=== PATIENT | male | born 1985 | race Caucasian/White ===

== ENCOUNTER 2018-11-20 23:06 | Emergency (ER) | payer MEDICAID ==
[~2018-11-20] VITALS: Ht 177.8 cm; Wt 86.2 kg
[~2018-11-20 23:06] MED LIST: DEXT10TA9 PO; HYDR-3714 PO; HYDR-4226 PO; HYDR1TAB PO; INDO25CA PO; INDO50CA11 PO; NAPR-243 PO; TRM50T PO
--- NOTE | 2018-11-21 00:56 | NUR ---
PT BACK TO ROOM AT THIS TIME. NO DISTRESS OR DISCOMFORT NOTED. NO DIFFICULTY WALKING OBSERVED. PT DID REPORT HIS PAIN HAS GONE FROM A "4" TO A "6" SINCE TRIAGE. PT DENIES INJURY.
[2018-11-21] MEDS ORDERED: NAPR-1071 PO (01:56)
--- NOTE | 2018-11-21 01:56 | ED Lower Extremity ---
General Chief Complaint: Lower Extremity Stated Complaint: R KNEE SWELLING Nursing Triage Note: PT AMB TO TRIAGE WITH COMPLAINT OF RIGHT KNEE SWELLING. PT STATES WHEN HE TOOK HIS PANTS OFF HE NOTICED THE HIS KNEE WAS SWOLLEN. DENIES INJURY TO KNEE. Nursing Sepsis Screen: No Definite Risk Source: patient Exam Limitations: no limitations History of Present Illness Date Seen by Provider: Nov 21, 2018 Time Seen by Provider: 01:40 Initial Comments Patient present to ER by private conveyance with chief complaint of swelling and pain in his right knee. No fevers chills or difficulty seeing, dysuria or discharge. Patient says he works at a [employer] plan and spent some time on his knees. He's been having some pain in his left knee more than right but never had any surgery or injury to his knees before. Allergies and Home Medications Allergies Coded Allergies: No Known Allergies (Unverified Allergy, Mild, 05/16/09) Home Medications Dextroamphetamine/Amphetamine 10 Mg Tablet, 10 MG PO BID, (Reported) Hydrocodone/Acetaminophen 1 Each Tablet, 1 EACH PO Q6H PRN for PAIN Prescribed by: LANDRY WERNER on 06/30/151409 Indomethacin 50 Mg Capsule, 50 MG PO TID Prescribed by: LANDRY WERNER on 06/30/15 1410 Patient Home Medication List Home Medication List Reviewed: Yes Review of Systems Constitutional: No chills, No diaphoresis EENTM: No ear discharge, No ear pain Respiratory: No cough, No phlegm Cardiovascular: No chest pain, No palpitations Gastrointestinal: No abdominal pain, No constipation, No diarrhea Past [id number]-Bazngw-Dnafqr Hx Patient Social History Alcohol Use: Denies Use Recreational Drug Use: No Smoking Status: Current Everyday Smoker Type Used: Cigarettes Recent Foreign Travel: No Contact w/Someone Who Travel: No Recent Infectious Disease Expo: No Recent Hopitalizations: No Immunizations Up To Date Tetanus Booster (TDap): Unknown PED Vaccines UTD: Yes Seasonal Allergies Seasonal Allergies: No Past Medical History Surgeries: No Respiratory: No Cardiac: No Neurological: No Reproductive Disorders: No Gastrointestinal: No Musculoskeletal: Yes Gout Endocrine: No Cancer: No Psychosocial: No Integumentary: No Blood Disorders: No Adverse Reaction/Blood Tranf: No Family Medical History No Pertinent Family Hx Physical Exam Vital Signs Vital Signs - First Documented 11/21/18 00:25 Temp 97.2 Pulse 70 Resp 20 B/P (MAP) 135/79 (97) Pulse Ox 98 O2 Delivery Room Air Capillary Refill : Less Than 3 Seconds Height, Weight, BMI Height: 5'10.00" Weight: 190lbs. oz. 86.642719wa; 27.26 BMI Method:Stated General Appearance: WD/WN, no apparent distress Neck: full range of motion, normal inspection Cardiovascular: normal peripheral pulses, regular rate, rhythm Respiratory: normal breath sounds, no respiratory distress, no accessory muscle use Knees: right knee non-tender, right knee normal inspection; bilateral knee normal range of motion; right knee no evidence of injury; left knee soft tissue tenderness, left knee swelling (prepatellar bursa swollen but not necessarily tender, erythematous or any evidence of pointing.) Progress/Results/Core Measures Results/Orders My Orders Orders - BRITT RIVERA Knee, Right, 3 Views (11/21/18 01:00) Ketorolac Injection (Toradol Injection) (11/21/18 02:00) Vital Signs/I&O 11/21/18 00:25 Temp 97.2 Pulse 70 Resp 20 B/P (MAP) 135/79 (97) Pulse Ox 98 O2 Delivery Room Air Blood Pressure Mean: 97 Progress Progress Note : Time: 01:54 Progress Note There is no joint effusion but he does have prepatellar bursitis probably from spinning time on his knees. Return a recommends kneepads. Rice therapy and follow-up in one to 2 weeks with primary care. Departure Impression Primary Impression: Prepatellar bursitis of right knee Disposition: 01 HOME, SELF-CARE Condition: Stable Departure-Patient Inst. Decision time for Depature: 01:54 Referrals: [facility] (PCP/Family) Primary Care Physician Patient Instructions: Bursitis (DC) Add. Discharge Instructions: Spend the next day close to home resting your leg. Elevate your knee above the level of your heart. Apply ice for 20 minutes every 4 hours for the first 3 days. You can use heat after that. He can also use icy hot or Biofreeze or other similar topical creams. Use Tylenol 1000 g every 8 hours as necessary for pain. Wrap the knee with an Constantino bandage not so tight has to cough circulation but to give some compression. After your knee has improved start using kneepads if you're going to spend any time on your knees. protective signal superintendent the Naprosyn and take one 500 mg tablet twice a day for 2 weeks. Follow-up with primary care in the next 2 weeks for reevaluation. If you're not feeling improvement then you can look into referral to physical therapy or orthopedic surgery for further management. All discharge instructions reviewed with patient and/or family. Voiced understanding. Scripts Naproxen (Naprosyn) 500 Mg Tablet 500 MG PO BID for 14 Days, #30 TAB 0 Refills Prov: BRITT RIVERA 11/21/18 BRITT RIVERA Nov 21, 2018 01:56
[2018-11-21] MEDS ORDERED: KETOROLAC 60 MG/2 ML VIAL IM ONE (02:00)
[2018-11-21 02:14] VITALS: BP 130/78
--- NOTE | 2018-11-21 07:09 | Diagnostic Imaging Report ---
INDICATION: Right knee pain and swelling. No known injury. TECHNIQUE: 3 views of the right knee CORRELATION STUDY: None FINDINGS: The joint spaces are maintained. The articular surfaces are smooth and preserved. There is no acute bony abnormality. Rather prominent soft tissue swelling is noted anterior to the knee. IMPRESSION: 1. Negative for acute bony abnormality of the knee. Rather pronounced anterior soft tissue swelling, nonspecific as to etiology. Dictated by: Dictated on workstation # [id number]
== END 2018-11-21 02:15 | disposition home or self-care (01) ==
LOC: EDUNIT# 23:06 → ER 23:07
DX: M70.41 Prepatellar bursitis, right knee (principal); M10.9 Gout, unspecified; F17.210 Nicotine dependence, cigarettes, uncomplicated
CPT/HCPCS: 73562

== ENCOUNTER 2020-09-16 16:05 | Emergency (ER) | payer MEDICAID ==
[~2020-09-16] VITALS: Ht 177.8 cm; Wt 72.4 kg
[~2020-09-16 16:05] MED LIST changes: -INDO50CA11 PO; +INDO50CA82 PO; +NAPR-1071 PO
--- NOTE | 2020-09-16 17:20 | NUR ---
BLOOD DRAWN BY LAB.
--- NOTE | 2020-09-16 17:26 | ED Psychosocial ---
General Chief Complaint: Detox Stated Complaint: WANTS REHAB Nursing Triage Note: AMB TO TRIAGE REPORT WANT DETOX FROM METH LAST USE WAS 1 DAY AGO. WHILE BEING TRIAGED PATIENT PHONE KEEP TEXTING ON PHONE WAS ASKED TO TURN IT OF . DENIES ANY COVID SYMPTOMS LAST TESTED [facility] SEP 05 AND IT WAS NEG. Source: patient Exam Limitations: no limitations History of Present Illness Date Seen by Provider: Sep 16, 2020 Time Seen by Provider: 17:23 Initial Comments This is a well-appearing 35-year-old male who presents to the ER with request to help him detox off of methamphetamines. . States he was recently admitted to [facility] psychiatric unit for suicidal ideation on September 04 and was disch arged on September 07. He used methamphetamines last 2 days ago, and reported suicidal ideation at that time. Today he is denying suicidal ideation and has no active plan, however, he states he thinks about suicide frequently. Has a history of anxiety and depression, but no other reported health problems. No physical complaints other than chronic right hand numbness reported. Denies fevers, chills, cough, shortness of breath, nausea, vomiting, diarrhea. States he was tested for COVID on September 05 at [facility]. Allergies and Home Medications Allergies Coded Allergies: No Known Allergies (Unverified Allergy, Mild, 05/16/09) Home Medications Dextroamphetamine/Amphetamine 10 Mg Tablet, 10 MG PO BID, (Reported) Hydrocodone/Acetaminophen 1 Each Tablet, 1 EACH PO Q6H PRN for PAIN Prescribed by: LANDRY WERNER on 06/30/15 141 Indomethacin 50 Mg Capsule, 50 MG PO TID Prescribed by: LANDRY WERNER on 06/30/15 141 Naproxen 500 Mg Tablet, 500 MG PO BID Prescribed by: BRITT RIVERA on 11/21/18 0156 Patient Home Medication List Home Medication List Reviewed: Yes Review of Systems Constitutional: no symptoms reported EENTM: no symptoms reported Respiratory: no symptoms reported Cardiovascular: no symptoms reported Gastrointestinal: no symptoms reported Genitourinary: no symptoms reported Musculoskeletal: no symptoms reported Skin: no symptoms reported Psychiatric/Neurological: Anxiety, Depressed, Emotional Problems Past Rpjcysf-Objgez-Agtnhf Hx Patient Social History Alcohol Use: Occasionally Uses Recreational Drug Use: Yes (METH) Smoking Status: Current Everyday Smoker Type Used: Cigarettes Recent Foreign Travel: No Contact w/Someone Who Travel: No Recent Infectious Disease Expo: No Recent Hopitalizations: No Immunizations Up To Date Tetanus Booster (TDap): Unknown PED Vaccines UTD: Yes Seasonal Allergies Seasonal Allergies: No Past Medical History Surgeries: No Respiratory: No Cardiac: No Neurological: No Reproductive Disorders: No Gastrointestinal: No Musculoskeletal: Yes Gout Endocrine: No Cancer: No Psychosocial: No Integumentary: No Blood Disorders: No Adverse Reaction/Blood Tranf: No Family Medical History No Pertinent Family Hx Physical Exam Vital Signs - First Documented 09/16/20 09/16/20 16:47 20:44 Temp 36.8 Pulse 88 Resp 18 B/P (MAP) 125/80 (95) Pulse Ox 98 O2 Delivery Room Air Capillary Refill : Less Than 3 Seconds Height, Weight, BMI Height: 5'10.00" Weight: 190lbs. oz. 86.142525tr; 22.00 BMI Method:Stated General Appearance: WD/WN, no apparent distress HEENT: PERRL/EOMI, pharynx normal Neck: full range of motion, normal inspection Respiratory: lungs clear, normal breath sounds Cardiovascular: regular rate, rhythm, no edema, no murmur Gastrointestinal: normal bowel sounds, non tender, soft Neurologic/Psychiatric: no motor/sensory deficits, alert, normal mood/affect, oriented x 3 Appearance/Memory: appropriate appearance, appropriate insight, neat, no memory impairment Behavior/Eye Contact: cooperative, good eye contact, normal speech Thoughts/Hallucinations: normal thought pattern, no apparent hallucination; No auditory hallucinations, No delusions, No flight of ideas Skin: normal color, warm/dry Progress/Results/Core Measures Results/Orders Lab Results Laboratory Tests Test 09/16/20 17:25 09/16/20 17:28 Range/Units White Blood Count 5.3 4.3-11.0 10^3/uL Red Blood Count 4.73 4.30-5.52 10^6/uL Hemoglobin 14.6 13.3-17.7 g/dL Hematocrit 42 40-54 % Mean Corpuscular Volume 88 80-99 fL Mean Corpuscular Hemoglobin 31 25-34 pg Mean Corpuscular Hemoglobin Concent 35 32-36 g/dL Red Cell Distribution Width 11.9 10.0-14.5 % Platelet Count 231 130-400 10^3/uL Mean Platelet Volume 8.8 L 9.0-12.2 fL Immature Granulocyte % (Auto) 0 % Neutrophils (%) (Auto) 41 L 42-75 % Lymphocytes (%) (Auto) 40 12-44 % Monocytes (%) (Auto) 14 H 0-12 % Eosinophils (%) (Auto) 4 0-10 % Basophils (%) (Auto) 1 0-10 % Neutrophils # (Auto) 2.2 1.8-7.8 10^3/uL Lymphocytes # (Auto) 2.1 1.0-4.0 10^3/uL Monocytes # (Auto) 0.7 0.0-1.0 10^3/uL Eosinophils # (Auto) 0.2 0.0-0.3 10^3/uL Basophils # (Auto) 0.0 0.0-0.1 10^3/uL Immature Granulocyte # (Auto) 0.0 0.0-0.1 10^3/uL Sodium Level 140 135-145 MMOL/L Potassium Level 3.7 3.6-5.0 MMOL/L Chloride Level 105 98-107 MMOL/L Carbon Dioxide Level 23 21-32 MMOL/L Anion Gap 12 5-14 MMOL/L Blood Urea Nitrogen 7 7-18 MG/DL Creatinine 1.02 0.60-1.30 MG/DL Estimat Glomerular Filtration Rate > 60 BUN/Creatinine Ratio 7 Glucose Level 124 H 70-105 MG/DL Calcium Level 9.6 8.5-10.1 MG/DL Corrected Calcium 9.4 8.5-10.1 MG/DL Total Bilirubin 0.5 0.1-1.0 MG/DL Aspartate Amino Transf (AST/SGOT) 18 5-34 U/L Alanine Aminotransferase (ALT/SGPT) 17 0-55 U/L Alkaline Phosphatase 64 40-136 U/L Total Protein 6.5 6.4-8.2 GM/DL Albumin 4.2 3.2-4.5 GM/DL Salicylates Level < 5.0 L 5.0-20.0 MG/DL Acetaminophen Level < 10 L 10-30 UG/ML Serum Alcohol < 10 <10 MG/DL Urine Color YELLOW Urine Clarity CLEAR Urine pH 6.0 5-9 Urine Specific [place] 1.025 H 1.016-1.022 Urine Protein NEGATIVE NEGATIVE Urine Glucose (UA) NEGATIVE NEGATIVE Urine Ketones NEGATIVE NEGATIVE Urine Nitrite NEGATIVE NEGATIVE Urine Bilirubin NEGATIVE NEGATIVE Urine Urobilinogen 1.0 < = 1.0 MG/DL Urine Leukocyte Esterase NEGATIVE NEGATIVE Urine RBC (Auto) NEGATIVE NEGATIVE Urine RBC NONE /HPF Urine WBC 5-10 H /HPF Urine Squamous Epithelial Cells NONE /HPF Urine Crystals NONE /LPF Urine Bacteria MODERATE H /HPF Urine Casts NONE /LPF Urine Mucus LARGE H /LPF Urine Culture Indicated YES Urine Opiates Screen NEGATIVE NEGATIVE Urine Oxycodone Screen NEGATIVE NEGATIVE Urine Methadone Screen NEGATIVE NEGATIVE Urine Propoxyphene Screen NEGATIVE NEGATIVE Urine Barbiturates Screen NEGATIVE NEGATIVE Ur Tricyclic Antidepressants Screen NEGATIVE NEGATIVE Urine Phencyclidine Screen NEGATIVE NEGATIVE Urine Amphetamines Screen NEGATIVE NEGATIVE Urine Methamphetamines Screen POSITIVE H NEGATIVE Urine Benzodiazepines Screen NEGATIVE NEGATIVE Urine Cocaine Screen NEGATIVE NEGATIVE Urine Cannabinoids Screen POSITIVE H NEGATIVE My Orders Orders - NORAH BUTCHER ELEMENTARY ASSISTANT TEACHER Ua Culture If Indicated (09/16/20 17:13) Cbc With Automated Diff (09/16/20 17:13) Comprehensive Metabolic Panel (09/16/20 17:13) Alcohol (09/16/20 17:13) Drug Screen Stat (Urine) (09/16/20 17:13) Acetaminophen (09/16/20 17:13) Salicylate (09/16/20 17:13) Ekg Tracing (09/16/20 17:13) Urine Culture (09/16/20 17:28) Ceftriaxone For Im Use (Rocephin For Im (09/16/20 18:15) Lidocaine 1% Inj 20 Ml (Xylocaine 1% Inj (09/16/20 18:15) Medications Given in ED Current Medications Medications Dose Ordered Sig/Natividad Route Start Time Stop Time Status Last Admin Dose Admin Ceftriaxone Sodium 1,000 mg ONCE ONCE IM 09/16/20 18:15 09/16/20 18:16 DC 09/16/20 18:52 1,000 MG Lidocaine HCl 2.1 ml ONCE ONCE INJ 09/16/20 18:15 09/16/20 18:16 DC 09/16/20 18:52 2.1 ML Vital Signs/I&O 09/16/20 09/16/20 16:47 20:44 Temp 36.8 36.8 Pulse 88 88 Resp 18 18 B/P (MAP) 125/80 (95) 125/80 Pulse Ox 98 98 O2 Delivery Room Air Blood Pressure Mean: 95 Progress Progress Note : Progress Note His brother brought him into the ER to get help, stating patient showed up at his house 2 days ago and was verbalizing suicidal thoughts, stating patient was saying he was going at an insurance plan and he could just and his family would be taken care of without him. He is currently denying suicidal ideation at this time, but does state he thinks about it quite frequently. Medical screening initiated upon arrival. Discussed plan to contact [facility] due to frequency of suicidal ideation, he is agreeable with this. States he would just like to get help. Labs reviewed and are unremarkable, does have UTI. Will treat with Rocephin. Called [facility] at [phone] for mental health screen. Tracking number [id number]. Reviewed safety plan with him and discharge plan. He is agreeable with POC. Departure Impression Primary Impression: Drug abuse Disposition: HOME, SELF-CARE Condition: Stable Departure-Patient Inst. Decision time for Depature: 20:13 Referrals: [facility] (PCP/Family) Primary Care Physician Add. Discharge Instructions: 1. Follow safety plan as outlined with [facility]. 2. Follow up with [facility]. 3. Do not use Methamphetamines. 4. Return for any new, concerning, or worsening symptoms. All discharge instructions reviewed with patient and/or family. Voiced understanding. Copy Copies To 1: [facility]NORAH STAUFFER ELEMENTARY ASSISTANT TEACHER Sep 16, 2020 17:26
[2020-09-16 17:30] LABS: BASOPHILS % (AUTO) 1 % (0-10); EOSINOPHILS # (AUTO) 0.2 10^3/uL (0.0-0.3); EOSINOPHILS % (AUTO) 4 % (0-10); HEMATOCRIT 42 % (40-54); HEMOGLOBIN 14.6 g/dL (13.3-17.7); LYMPHOCYTES # (AUTO) 2.1 10^3/uL (1.0-4.0); LYMPHOCYTES % (AUTO) 40 % (12-44); MEAN CORPUSCULAR HEMOGLOBIN 31 pg (25-34); MEAN CORPUSCULAR HGB CONC 35 g/dL (32-36); MEAN CORPUSCULAR VOLUME 88 fL (80-99); MEAN PLATELET VOLUME 8.8 fL (9.0-12.2); MONOCYTES # (AUTO) 0.7 10^3/uL (0.0-1.0); MONOCYTES % (AUTO) 14 % (0-12); NEUTROPHILS # (AUTO) 2.2 10^3/uL (1.8-7.8); NEUTROPHILS % (AUTO) 41 % (42-75); PLATELET COUNT 231 10^3/uL (130-400); WHITE BLOOD COUNT 5.3 10^3/uL (4.3-11.0)
[2020-09-16 17:36] LABS: BILIRUBIN,URINE NEGATIVE (NEGATIVE); CLARITY,URINE CLEAR; COLOR,URINE YELLOW; GLUCOSE, URINE (UA) NEGATIVE (NEGATIVE); KETONES,URINE NEGATIVE (NEGATIVE); LEUKOCYTE ESTERASE ,URINE NEGATIVE (NEGATIVE); NITRITE,URINE NEGATIVE (NEGATIVE); PROTEIN,URINE NEGATIVE (NEGATIVE)
[2020-09-16 17:40] LABS: ALBUMIN 4.2 GM/DL (3.2-4.5); CHLORIDE 105 MMOL/L (98-107); POTASSIUM 3.7 MMOL/L (3.6-5.0); SODIUM 140 MMOL/L (135-145)
[2020-09-16 17:41] LABS: CALCIUM 9.6 MG/DL (8.5-10.1)
[2020-09-16 17:42] LABS: GLUCOSE 124 MG/DL (70-105)
[2020-09-16 17:43] LABS: CARBON DIOXIDE 23 MMOL/L (21-32); TOTAL PROTEIN 6.5 GM/DL (6.4-8.2)
[2020-09-16 17:44] LABS: BILIRUBIN,TOTAL 0.5 MG/DL (0.1-1.0)
[2020-09-16 17:46] LABS: BACTERIA,URINE MODERATE /HPF
[2020-09-16 17:46] LABS: ALKALINE PHOSPHATASE 64 U/L (40-136); CREATININE SERUM 1.02 MG/DL (0.60-1.30); GFR ESTIMATED > 60
[2020-09-16 17:48] LABS: BUN/CREATININE RATIO 7
[2020-09-16 17:49] LABS: ACETAMINOPHEN < 10 UG/ML (10-30); ALANINE AMINOTRANSFERASE 17 U/L (0-55); SALICYLATE < 5.0 MG/DL (5.0-20.0)
[2020-09-16 18:08] LABS: AMPHETAMINE SCREEN, URINE NEGATIVE (NEGATIVE); BARBITURATE SCREEN URINE NEGATIVE (NEGATIVE); BENZODIAZEPINES SCREEN URINE NEGATIVE (NEGATIVE); CANNABINOID SCREEN, URINE POSITIVE (NEGATIVE); COCAINE SCREEN URINE NEGATIVE (NEGATIVE); METHADONE STAT NEGATIVE (NEGATIVE); METHAMPHETAMINE SCREEN URINE S POSITIVE (NEGATIVE); OPIATE SCREEN URINE NEGATIVE (NEGATIVE); OXYCODONE STAT NEGATIVE (NEGATIVE); PROPOXYPHENE STAT NEGATIVE (NEGATIVE); TRICYCLIC ANTIDEPRESSANTS SCRE NEGATIVE (NEGATIVE)
[2020-09-16] MEDS ORDERED: cefTRIAXone 1,000 MG/2.86 ml vial (IM ONLY) IM ONE (18:15)
[2020-09-16] MEDS ORDERED: LIDOCAINE 1% INJ 20 ML 20 ML VIAL INJ ONE (18:15)
--- NOTE | 2020-09-16 19:00 | NUR ---
ZOOM MEETING SET OF WITH MENTAL HEALTH
[2020-09-16 20:44] VITALS: BP 125/80
== END 2020-09-16 20:40 | disposition home or self-care (01) ==
LOC: EDUNIT# 16:05 → ER 16:07
DX: F15.10 Other stimulant abuse, uncomplicated (principal); F17.210 Nicotine dependence, cigarettes, uncomplicated; F41.9 Anxiety disorder, unspecified; F32.9 Major depressive disorder, single episode, unspecified
CPT/HCPCS: 80053; 80306; 81000; 85025; 87088; 93005; 99283; G0480 ×3; 36415; 80320; 80329

== ENCOUNTER 2021-05-28 22:34 | Emergency (ER) | payer SELFPAY ==
[~2021-05-28] VITALS: Ht 177.8 cm; Wt 65.0 kg
[2021-05-28 22:40] VITALS: BP 133/89
[2021-05-28 23:13] LABS: BASOPHILS # (AUTO) 0.1 10^3/uL (0.0-0.1); BASOPHILS % (AUTO) 1 % (0-10); EOSINOPHILS # (AUTO) 0.3 10^3/uL (0.0-0.3); EOSINOPHILS % (AUTO) 4 % (0-10); HEMATOCRIT 42 % (40-54); HEMOGLOBIN 14.9 g/dL (13.3-17.7); LYMPHOCYTES # (AUTO) 2.2 10^3/uL (1.0-4.0); LYMPHOCYTES % (AUTO) 29 % (12-44); MEAN CORPUSCULAR HEMOGLOBIN 32 pg (25-34); MEAN CORPUSCULAR HGB CONC 35 g/dL (32-36); MEAN CORPUSCULAR VOLUME 90 fL (80-99); MEAN PLATELET VOLUME 8.8 fL (9.0-12.2); MONOCYTES % (AUTO) 13 % (0-12); NEUTROPHILS # (AUTO) 4.2 10^3/uL (1.8-7.8); NEUTROPHILS % (AUTO) 53 % (42-75); PLATELET COUNT 242 10^3/uL (130-400); WHITE BLOOD COUNT 7.8 10^3/uL (4.3-11.0)
[2021-05-28] MEDS ORDERED: FAMOTIDINE 20MG/2ML IV (PEPCID) IVP ONE (23:15)
[2021-05-28] MEDS ORDERED: ONDANSETRON 4 MG/2 ML (SDV) Z0FRAN IVP ONE (23:15)
[2021-05-28 23:27] LABS: ALBUMIN 4.3 GM/DL (3.2-4.5); POTASSIUM 3.8 MMOL/L (3.6-5.0)
[2021-05-28 23:28] LABS: INR 1.1 (0.8-1.4); PROTHROMBIN TIME PATIENT 14.4 SEC (12.2-14.7)
[2021-05-28 23:30] LABS: TOTAL PROTEIN 6.9 GM/DL (6.4-8.2)
[2021-05-28 23:32] LABS: BILIRUBIN,TOTAL 0.5 MG/DL (0.1-1.0)
[2021-05-28 23:33] LABS: CREATININE SERUM 1.04 MG/DL (0.60-1.30)
[2021-05-28 23:36] LABS: MAGNESIUM 2.4 MG/DL (1.6-2.4)
[2021-05-28 23:37] LABS: LIPASE 25 U/L (8-78)
--- NOTE | 2021-05-29 01:15 | ED Chest Pain ---
General Chief Complaint: Chest Pain Stated Complaint: L SIDE CHEST PAIN/TINGLING ON FACE/CONGESTION Nursing Triage Note: Pt arrival to ER with disheviled look. Pt has no shoes on and is dressed as if its winter time. Pt complains of chest pain x3 days. pt states that its worsened. Pt is rude when answering questions and is a poor historian. When asking about Smoking, Drug, or Alcohol use patient states that its hard to tell these days. Pt has what appears to be liquor bottle on him, staff takes it and sets it aside. Pt demands blanket and is mad when we ask to do EKG. Pt asks for nurse to leave room and wants someone else to take care of him. Pain at a 06/16. Source: patient, old records Exam Limitations: no limitations History of Present Illness Date Seen by Provider: May 28, 2021 Time Seen by Provider: 22:48 Initial Comments This 36-year-old gentleman presents to the emergency room with complaints of left-sided chest, sore throat and upper abdominal pain present for 3 days and worsening. He has associated nausea without vomiting and shortness of breath. He denies diarrhea call the change in taste or smell, or cough. He denies any prior episodes. Patient seems rather resistant to care despite of starting his desire to be evaluated for cardiopulmonary problems. He requested his IV be removed. It took some coaxing for him to proceed with the remainder of the work-up. He eventually did consent to chest x-ray and nasal swabs. He did not provide a urine specimen. Positive urine drug screen on his prior ER visit. He denies drug or alcohol use during this visit. Patient was noted to have a small sheathed hatchet-like weapon tucked under his belt. We requested this be removed and placed in the supervision of the distribution warehouse manager. Patient did comply with this request. Allergies and Home Medications Allergies Coded Allergies: No Known Allergies (Unverified Allergy, Mild, 05/16/09) Patient Home Medication List Home Medication List Reviewed: Yes Dextroamphetamine/Amphetamine (Adderall 10 mg Tablet) 10 Mg Tablet, 10 MG PO BID, (Reported) Entered as Reported by: NANCY BUSTOS on 06/30/15 2877 Hydrocodone/Acetaminophen (Hydrocodone/Acetaminophen 5 MG/325 MG TAB) 1 Each Tablet, 1 EACH PO Q6H PRN for PAIN Prescribed by: LANDRY WERNER on 06/30/15 1410 Indomethacin (Indomethacin) 50 Mg Capsule, 50 MG PO TID Prescribed by: LANDRY WERNER on 06/30/15 1410 Naproxen (Naprosyn) 500 Mg Tablet, 500 MG PO BID Prescribed by: BRITT RIVERA on 11/21/18 0156 Review of Systems Review of Systems Constitutional: no symptoms reported EENTM: No Symptoms Reported Respiratory: See HPI Cardiovascular: See HPI Gastrointestinal: See HPI Genitourinary: No Symptoms Reported Musculoskeletal: see HPI Skin: no symptoms reported Psychiatric/Neurological: See HPI Endocrine: No Symptoms Reported Past Kvxakml-Owkcry-Hakbfc Hx Patient Social History Tobacco Use?: Yes Tobacco type used: Cigarettes Smoking Status: Current Everyday Smoker Use of E-Cig and/or Vaping dev: No Substance use?: Yes Substance type: Methamphetamine, Marijuana Alcohol Use?: Yes Alcohol type: Other Alcohol Frequency: Rarely Pt feels they are or have been: No Immunizations Up To Date Tetanus Booster (TDap): Unknown PED Vaccines UTD: Yes Influenza Vaccine Up-to-Date: No; Not Current Seasonal Allergies Seasonal Allergies: No Past Medical History Surgeries: No Respiratory: No Cardiac: No Neurological: No Reproductive Disorders: No Gastrointestinal: No Musculoskeletal: Yes Gout Endocrine: No Cancer: No Psychosocial: No Integumentary: No Blood Disorders: No Adverse Reaction/Blood Tranf: No Family Medical History No Pertinent Family Hx Physical Exam Vital Signs Vital Signs - First Documented 05/28/21 22:40 Temp 36.3 Pulse 84 Resp 20 B/P (MAP) 133/89 (104) Pulse Ox 97 O2 Delivery Room Air Capillary Refill : Less Than 3 Seconds Height, Weight, BMI Height: 5'10.00" Weight: 190lbs. oz. 86.017752jr; 20.00 BMI Method:Stated General Appearance: No Apparent Distress, WD/WN HEENT: PERRL/EOMI, Normal ENT Inspection, Other (Oropharynx somewhat dry) Neck: Normal Inspection Respiratory: Lungs Clear, Normal Breath Sounds, No Accessory Muscle Use, Other (Left anterior chest tender to palpation) Cardiovascular: Regular Rate, Rhythm, No Edema, No Murmur Gastrointestinal: Normal Bowel Sounds, Soft, Tenderness (Left upper quadrant) Extremity: Normal Inspection, Non Tender, No Calf Tenderness, No Pedal Edema Neurologic/Psychiatric: Alert, Oriented x3, No Motor/Sensory Deficits, public relations assistant II- XII Norm as Tested, Other (Disagreeable and suspicious during exam and work-up) Skin: Normal Color, Warm/Dry Progress/Results/Core Measures Results/Orders Lab Results Laboratory Tests Test 05/28/21 23:04 05/29/21 00:10 Range/Units White Blood Count 7.8 4.3-11.0 10^3/uL Red Blood Count 4.69 4.30-5.52 10^6/uL Hemoglobin 14.9 13.3-17.7 g/dL Hematocrit 42 40-54 % Mean Corpuscular Volume 90 80-99 fL Mean Corpuscular Hemoglobin 32 25-34 pg Mean Corpuscular Hemoglobin Concent 35 32-36 g/dL Red Cell Distribution Width 11.6 10.0-14.5 % Platelet Count 242 130-400 10^3/uL Mean Platelet Volume 8.8 L 9.0-12.2 fL Immature Granulocyte % (Auto) 0 % Neutrophils (%) (Auto) 53 42-75 % Lymphocytes (%) (Auto) 29 12-44 % Monocytes (%) (Auto) 13 H 0-12 % Eosinophils (%) (Auto) 4 0-10 % Basophils (%) (Auto) 1 0-10 % Neutrophils # (Auto) 4.2 1.8-7.8 10^3/uL Lymphocytes # (Auto) 2.2 1.0-4.0 10^3/uL Monocytes # (Auto) 1.0 0.0-1.0 10^3/uL Eosinophils # (Auto) 0.3 0.0-0.3 10^3/uL Basophils # (Auto) 0.1 0.0-0.1 10^3/uL Immature Granulocyte # (Auto) 0.0 0.0-0.1 10^3/uL Erythrocyte Sedimentation Rate 6 0-15 MM/HR Prothrombin Time 14.4 12.2-14.7 SEC INR Comment 1.1 0.8-1.4 Activated Partial Thromboplast Time 30 24-35 SEC Sodium Level 139 135-145 MMOL/L Potassium Level 3.8 3.6-5.0 MMOL/L Chloride Level 105 98-107 MMOL/L Carbon Dioxide Level 23 21-32 MMOL/L Anion Gap 11 5-14 MMOL/L Blood Urea Nitrogen 15 7-18 MG/DL Creatinine 1.04 0.60-1.30 MG/DL Estimat Glomerular Filtration Rate 81 BUN/Creatinine Ratio 14 Glucose Level 88 70-105 MG/DL Calcium Level 10.0 8.5-10.1 MG/DL Corrected Calcium 9.8 8.5-10.1 MG/DL Magnesium Level 2.4 1.6-2.4 MG/DL Total Bilirubin 0.5 0.1-1.0 MG/DL Aspartate Amino Transf (AST/SGOT) 15 5-34 U/L Alanine Aminotransferase (ALT/SGPT) 14 0-55 U/L Alkaline Phosphatase 75 40-136 U/L Myoglobin 31.5 10.0-92.0 NG/ML Troponin I < 0.028 <0.028 NG/ML C-Reactive Protein High Sensitivity 0.20 0.00-0.50 MG/DL Total Protein 6.9 6.4-8.2 GM/DL Albumin 4.3 3.2-4.5 GM/DL Lipase 25 8-78 U/L Serum Alcohol < 10 <10 MG/DL Influenza Type A Antigen NEGATIVE NEGATIVE Influenza Type B Antigen NEGATIVE NEGATIVE Group A Streptococcus Screen NEGATIVE NEGATIVE My Orders Orders - TIMUR GERONIMO MD Cbc With Automated Diff (05/28/21:00) Magnesium (05/28/21 23:00) Ekg Tracing (05/28/21 23:00) Comprehensive Metabolic Panel (05/28/21 23:00) Myoglobin Serum (05/28/21 23:00) Protime With Inr (05/28/21:00) Partial Thromboplastin Time (05/28/21:00) O2 (05/28/21 23:00) Monitor-Rhythm Ecg Trace Only (05/28/21 23:00) Ed Iv/Invasive Line Start (05/28/21 23:00) Troponin I (05/28/21 23:00) Alcohol (05/28/21 23:00) Hs C Reactive Protein (05/28/21 23:00) Lipase (05/28/21 23:00) Erythrocyte Sedimentation Rate (05/28/21 23:00) Ondansetron Injection (Zofran Injectio (05/28/21 23:15) Famotidine Injection (Pepcid Injection) (05/28/21 23:15) Rapid Strep A Screen (05/28/21 23:01) Coronavirus Sars-Cov-2 So 2019 (05/28/21 23:01) Influenza A & B Antigens (05/28/21 23:07) Chest 1 View, Ap/Pa Only (05/29/21 00:00) Vital Signs/I&O 05/28/21 22:40 Temp 36.3 Pulse 84 Resp 20 B/P (MAP) 133/89 (104) Pulse Ox 97 O2 Delivery Room Air Blood Pressure Mean: 104 Progress Progress Note : Progress Note Work-up was unremarkable. Patient declined Toradol for his pain. He became increasingly somnolent throughout his ER visit but was easily arousable and was ambulatory on discharge. Covid screen was pending at the time of discharge. Initial ECG Impression Date: May 28, 2021 Initial ECG Impression Time: 22:45 Initial ECG Rate: 74 Initial ECG Rhythm: Normal Sinus Initial ECG Intervals: Normal Initial ECG Impression: Normal Comment Normal sinus rhythm with no diagnostic ST elevation or depression. No abnormal intervals or axis deviation. Diagnostic Imaging Diagonstic Imaging: Xray Plain Films/CT/US/NM/MRI: chest Comments Chest x-ray viewed by me. Report not available. No acute abnormalities appr eciated. Departure Impression Primary Impression: Chest wall pain Additional Impressions: Pharyngitis Qualified Codes: J02.9 - Acute pharyngitis, unspecified Left sided abdominal pain of unknown cause Person under investigation for COVID-19 Disposition: 01 HOME, SELF-CARE Condition: Stable Departure-Patient Inst. Decision time for Depature: 01:14 Referrals: [facility] [place] Primary Care Physician Patient Instructions: Chest Pain That Is Not Caused by the Heart (DC) Add. Discharge Instructions: Your heart and lung evaluation in the emergency department was unremarkable. However, you should follow-up with your primary care provider for further evaluation. Your COVID-19 test is still pending. Please remain in isolation and quarantined away from others until the results of your test is known. This should be available in 24 to 48 hours. You may take Tylenol (acetaminophen) and/or ibuprofen for your pain. Call with questions or concerns. Return to the ER if you have worsening symptoms. All discharge instructions reviewed with patient and/or family. Voiced understanding. Copy Copies To 1: STEFAN MACK JOSHUA T MD May 29, 2021 01:15
--- NOTE | 2021-05-29 07:09 | Diagnostic Imaging Report ---
Portable erect AP chest at 1209h. INDICATION: Chest pain COMPARISON: None. FINDINGS: The heart size is within normal limits. The lungs are clear. There is no evidence for failure, pneumonia or for a pleural effusion. The mediastinum is not widened. The osseous structures are intact. IMPRESSION: There is no evidence for active disease. Dictated by: Dictated on workstation # [id number]
== END 2021-05-29 01:23 | disposition home or self-care (01) ==
LOC: EDUNIT# 22:34 → ER 22:37
DX: R07.89 Other chest pain (principal); J02.9 Acute pharyngitis, unspecified; R10.12 Left upper quadrant pain; F17.210 Nicotine dependence, cigarettes, uncomplicated; Z20.822 Contact with and (suspected) exposure to COVID-19
CPT/HCPCS: 71045; 80053; 83690; 83735; 83874; 84484; 85025; 85610; 85652; 85730; 86141; 87430; 87635; 87804; 93005; 93041; 99284; G0480; 36415; 80320

== ENCOUNTER 2022-12-16 07:01 | Emergency (ER) | payer SELFPAY ==
[~2022-12-16] VITALS: Ht 177 cm; Wt 72.0 kg
[2022-12-16] MEDS ORDERED: HYDROcodone/APAP 5 MG/325 MG (LORTAB) TAB PO ONE (07:15)
[2022-12-16] MEDS ORDERED: KETOROLAC 30 MG/ML VIAL IM ONE (07:15)
--- NOTE | 2022-12-16 07:22 | ED GU-Male ---
General Chief Complaint: - Reproductive Stated Complaint: SWOLLEN LEFT TESTICLE Nursing Triage Note: ARRIVED VIA EMS WITH A SWOLLEN LEFT TESTICLE STARTING LEFT TESTICLE FOR SEVERAL DAYS THAT HAS BEEN GETTING WORSE. Source: patient, EMS Exam Limitations: no limitations History of Present Illness Date Seen by Provider: Dec 16, 2022 Time Seen by Provider: 07:03 Initial Comments 37-year-old male with no pertinent past medical history coming in due to left testicle swelling and pain. Been going on for several days, getting worse. He has not seen anyone for it as of yet. Last took some ibuprofen yesterday which helped somewhat. He noted that there were some "floating things" in his urine, but denies any discharge from his penis. Denies any trauma to the area, fever, nausea, vomiting, abdominal pain, rash, or any other concerns. Allergies and Home Medications Allergies Coded Allergies: No Known Allergies (Unverified Allergy, Mild, 05/16/09) Patient Home Medication List Home Medication List Reviewed: Yes Discontinued Medications Dextroamphetamine/Amphetamine (Adderall 10 mg Tablet) 10 Mg Tablet, 10 MG PO BID, (Reported) Discontinued Reason: No Longer Taking Entered as Reported by: NANCY BUSTOS on 06/30/15 1317 Last Action: Discontinued Hydrocodone/Acetaminophen (Hydrocodone/Acetaminophen 5 MG/325 MG TAB) 1 Each Tablet, 1 EACH PO Q6H PRN for PAIN Discontinued Reason: No Longer Taking Prescribed by: LANDRY WERNER on 06/30/15 141 Last Action: Discontinued Indomethacin (Indomethacin) 50 Mg Capsule, 50 MG PO TID Discontinued Reason: No Longer Taking Prescribed by: LANDRY WERNER on 06/30/15 1410 Last Action: Discontinued Naproxen (Naprosyn) 500 Mg Tablet, 500 MG PO BID Discontinued Reason: No Longer Taking Prescribed by: BRITT RIVERA on 11/21/18 0156 Last Action: Discontinued Review of Systems Review of Systems Constitutional: No fever EENTM: no symptoms reported Respiratory: no symptoms reported Gastrointestinal: no symptoms reported Genitourinary: see HPI Musculoskeletal: no symptoms reported Skin: no symptoms reported Psychiatric/Neurological: No Symptoms Reported Past Bdiwatt-Qyrhcl-Dzwqkf Hx Patient Social History Tobacco Use?: Yes Smoking Status: Current Everyday Smoker Substance use?: Yes Additional substance use comme: STATES HE USES BUT DOES NOT KNOW WHAT HE USES Alcohol Use?: Yes Immunizations Up To Date Tetanus Booster (TDap): Unknown PED Vaccines UTD: Yes Seasonal Allergies Seasonal Allergies: No Past Medical History Surgeries: No Respiratory: No Cardiac: No Neurological: No Reproductive Disorders: No Gastrointestinal: No Musculoskeletal: Yes Gout Endocrine: No Cancer: No Psychosocial: No Integumentary: No Blood Disorders: No Adverse Reaction/Blood Tranf: No Family Medical History No Pertinent Family Hx Physical Exam Vital Signs Vital Signs - First Documented 12/16/22 07:05 Temp 37.1 Pulse 129 Resp 16 B/P (MAP) 126/90 (102) Pulse Ox 99 O2 Delivery Room Air Capillary Refill : Less Than 3 Seconds Height, Weight, BMI Height: 5'10.00" Weight: 190lbs. oz. 86.906567ub; 22.00 BMI Method:Stated General Appearance: WD/WN, mild distress HEENT: PERRL/EOMI, normal ENT inspection, pharynx normal Neck: non-tender, full range of motion, supple, normal inspection Cardiovascular: regular rate, rhythm, no edema, no murmur Respiratory: chest non-tender, lungs clear, normal breath sounds, no respiratory distress, no accessory muscle use Gastrointestinal: normal bowel sounds, non tender, soft; No guarding, No rebound Genital/Rectal: other (Penis appears normal with no obvious discharge, left testicle significantly swollen and tender, cremasteric reflex is equivocal) Back: normal inspection, no CVA tenderness Extremities: normal range of motion, non-tender, normal inspection, no pedal ed maureen, no calf tenderness, normal capillary refill Neurologic/Psychiatric: no motor/sensory deficits, alert, normal mood/affect Skin: normal color, warm/dry Progress/Results/Core Measures Suspected Sepsis SIRS Temperature: Pulse: 129 Respiratory Rate: 16 Blood Pressure 126 /90 Mean: 102 Results/Orders Lab Results Laboratory Tests Test 12/16/22 07:17 Range/Units Urine Color YELLOW Urine Clarity CLEAR Urine pH 8.0 5-9 Urine Specific [place] 1.010 L 1.016-1.022 Urine Protein NEGATIVE NEGATIVE Urine Glucose (UA) NEGATIVE NEGATIVE Urine Ketones NEGATIVE NEGATIVE Urine Nitrite POSITIVE H NEGATIVE Urine Bilirubin NEGATIVE NEGATIVE Urine Urobilinogen 0.2 < = 1.0 MG/DL Urine Leukocyte Esterase NEGATIVE NEGATIVE Urine RBC (Auto) NEGATIVE NEGATIVE Urine RBC 0-2 /HPF Urine WBC 2-5 /HPF Urine Crystals NONE /LPF Urine Bacteria LARGE H /HPF Urine Casts NONE /LPF Urine Mucus NEGATIVE /LPF Urine Other FEW SPERM H /HPF Urine Culture Indicated YES My Orders Orders - EDDIE IBARRA MD Ua Culture If Indicated (12/16/22 07:12) Neis Gianfranco Dna Urine Test (12/16/22 07:12) Chlamydia Trachomatis Urine (12/16/22 07:12) Us Scrotum (Testicle) [id number] (12/16/22 07:12) Ketorolac Injection (Toradol Injection) (12/16/22 07:15) Hydrocodone/Apap 5/325 Tablet (Lortab 5 (12/16/22 07:15) Urine Culture (12/16/22 07:17) Vital Signs/I&O 12/16/22 07:05 Temp 37.1 Pulse 129 Resp 16 B/P (MAP) 126/90 (102) Pulse Ox 99 O2 Delivery Room Air Capillary Refill : Less Than 3 Seconds Blood Pressure Mean: 102 Progress Note : Progress Note 37-year-old male with above history coming in due to left testicle swelling and pain. ABCs were intact and vitals were stable on presentation. Physical exam with a swollen left testicle, cremasteric reflexes equivocal, I did a [id number] ultrasound showing an enlarged testicle on the left that does have a Doppler signal. Could be testicular torsion still versus orchitis versus some other etiology. Patient was given IM Toradol as well as hydrocodone for pain control. Formal ultrasound was ordered to assess for torsion versus other etiology. Urinalysis as well as GC and chlamydia labs were sent. His urine is concerning for infection, given his clinical presentation this wou ld likely reflect epididymitis/orchitis from sexually-transmitted infection. I confirm with the patient that he does have 1 sexual partner that is female and he does not use protection. He was treated with IM ceftriaxone as well as doxycycline. We will send a prescription for doxycycline as well and pain medication. He did receive IM Toradol and a hydrocodone while in the ER. Ultrasound otherwise ordered and consistent with epididymitis and no torsion. I believe the patient is stable for discharge with outpatient follow-up. He was sent home with strict return precautions Departure Impression Primary Impression: Orchitis Additional Impression: STI (sexually transmitted infection) Disposition: HOME, SELF-CARE Condition: Stable Departure-Patient Inst. Decision time for Depature: 08:05 Referrals: [facility] (PCP/Family) Primary Care Physician Patient Instructions: Sexually Transmitted Diseases ED Add. Discharge Instructions: This does appear to be a sexually-transmitted infection that is gone to your testicle. You will be on antibiotics for the next 2 weeks. Any of your sexual partners need to be treated as well, otherwise they can give it back to you and you will have the infection again. Do not have any unprotected intercourse until you have completed your antibiotics, and even then it would be best to use a condom. Pain medicine was also sent to your pharmacy for the next couple of days. Try to take ibuprofen 600 mg every 6 hours as needed for pain, if you have pain on top of that then you can take the hydrocodone. Scripts Ibuprofen (Ibuprofen) 600 Mg Tablet 600 MG PO Q6H PRN for PAIN-MILD for 5 Days, #20 TAB Prov: EDDIE IBARRA MD 12/16/22 Hydrocodone/Acetaminophen (Hydrocodone-Acetamin 5-325 mg) 5 Mg-325 Mg Tablet 1 TAB PO Q6H PRN for PAIN-MODERATE (5-7) for 2 Days, #8 TAB Prov: EDDIE IBARRA MD 12/16/22 Doxycycline Hyclate (Doxycycline Hyclate) 100 Mg Tablet 100 MG PO BID for 14 Days, #28 TAB 0 Refills Prov: EDDIE IBARRA MD 12/16/22 Work/School Note: Work Release Form Date Seen in the Emergency Department: Dec 16, 2022 Return to Work: Dec 17, 2022 Restrictions: No Restrictions EDDIE IBARRA MD Dec 16, 2022 07:22
[2022-12-16 07:24] LABS: BILIRUBIN,URINE NEGATIVE (NEGATIVE); CLARITY,URINE CLEAR; COLOR,URINE YELLOW; GLUCOSE, URINE (UA) NEGATIVE (NEGATIVE); KETONES,URINE NEGATIVE (NEGATIVE); LEUKOCYTE ESTERASE ,URINE NEGATIVE (NEGATIVE); NITRITE,URINE POSITIVE (NEGATIVE); PROTEIN,URINE NEGATIVE (NEGATIVE)
[2022-12-16 07:36] LABS: BACTERIA,URINE LARGE /HPF; RBC,URINE 0-2 /HPF
[2022-12-16 07:37] LABS: URINE OTHER FEW SPERM /HPF
[2022-12-16] MEDS ORDERED: DOXYCYCLINE 100 MG (VIBRAMYCIN) TABLET PO STA (07:53)
[2022-12-16] MEDS ORDERED: IBUP-1773 PO (07:58)
[2022-12-16] MEDS ORDERED: ACHD5005 PO (07:58)
[2022-12-16] MEDS ORDERED: DOXY100T2 PO (07:58)
[2022-12-16] MEDS ORDERED: LIDOCAINE 1% INJ 20 ML VIAL INJ ONE (08:00)
[2022-12-16] MEDS ORDERED: cefTRIAXone 250 MG/2.5 ML ML IM ONE (08:00)
[2022-12-16] MEDS ORDERED: LIDOCAINE 1% INJ 10 ML VIAL ONE (08:21)
--- NOTE | 2022-12-16 08:25 | Diagnostic Imaging Report ---
INDICATION: Left-sided scrotal pain. Scrotal sonography performed in the routine fashion, including color Doppler. The right testicle measured 5.3 x 2.2 x 3.6 cm. The right testicle shows no focal lesion. There is color flow to the right testicle. Right epididymis appear normal. The right side showed no hydrocele. There is no varicocele the right. The left testicle measured 5.2 x 3.5 x 4.5 cm. There is color flow to the left testicle. The left epididymis appear enlarged and hypervascular, compatible with epididymitis. There is a small hydrocele on the left side. There is no varicocele. IMPRESSION: No evidence of testicular torsion. Enlarged hypervascular left epididymis is compatible with epididymitis. There is a small left hydrocele. Dictated by: Dictated on workstation # [id number]
[2022-12-16 08:48] VITALS: BP 110/73
== END 2022-12-16 08:48 | disposition home or self-care (01) ==
LOC: EDUNIT# 07:01 → ER 07:03
DX: N45.2 Orchitis (principal); A64 Unspecified sexually transmitted disease; F17.200 Nicotine dependence, unspecified, uncomplicated; Z28.310 Unvaccinated for COVID-19
CPT/HCPCS: 36415; 76870; 81000; 87077; 87088; 87186; 87491; 87591